=== PATIENT | female | born 1950 | race Caucasian/White ===

== ENCOUNTER 2018-08-03 11:54 | Emergency (ER) | payer OTHER, SELFPAY ==
--- NOTE | 2018-08-03 12:42 | RAD ---
EXAM: Two views chest PROVIDED CLINICAL HISTORY: Weakness and cough COMPARISON: None FINDINGS: Cardiac and mediastinal silhouette appears within normal limits. Lungs appear free of significant opa city. No pleural fluid or pneumothorax apparent. Prominent left convexity scoliosis of the lower thoracic and visualized upper lumbar spine. IMPRESSION: No evidence for an acute cardiopulmonary process.
== END 2018-08-03 13:50 | disposition home or self-care (01) ==
LOC: ERS 11:54
DX: J20.9 Acute bronchitis, unspecified (principal); J30.9 Allergic rhinitis, unspecified; F17.210 Nicotine dependence, cigarettes, uncomplicated
CPT/HCPCS: 71046; 94640; J7620

== ENCOUNTER 2018-10-23 09:24 | Outpatient (CLI) | payer MEDICARE, MEDICAID ==
--- NOTE | 2018-10-23 17:12 | EKG ---
Test Reason : Blood Pressure : / mmHG Vent. Rate : 085 BPM Atrial Rate : 085 BPM P-R Int : 150 ms QRS Dur : 070 ms QT Int : 342 ms P-R-T Axes : 000 055 054 degrees QTc Int : 406 ms Sinus rhythm with Premature atrial complexes Atrial abnormality Anterior infarct , age undetermined Abnormal ECG No previous ECGs available Confirmed by DR. Dorothy HURLEY ([id number]) on 10/23/2018 5:12:23 PM Referred By: HUGH Confirmed By:DR. Dorothy HURLEY
== END 2018-10-23 09:25 | disposition home or self-care (01) ==
LOC: LABBT 09:24
PROVIDERS: ATTEND Thoracic Surgery (Cardiothoracic Vascular Surgery)
DX: Z01.818 Encounter for other preprocedural examination (principal); I71.4 Abdominal aortic aneurysm, without rupture
CPT/HCPCS: 93005; 93010

== ENCOUNTER 2018-10-23 10:00 | Inpatient (IN) | payer MEDICARE, MEDICAID ==
[2018-10-23 09:52] VITALS: BMI 27.9
[2018-10-23 10:43] LABS: Hemoglobin 18.5 g/dL (12.0-16.0); Mean Corpuscular HGB CONC 32.7 g/dL (32.0-36.0); Mean Corpuscular Hemoglobin 31.4 pg (27.0-31.0); Mean Platelet Volume 7.3 fL (7.4-10.4); Platelet Count 344 thou/uL (130-400); RBC Distribution Width 12.3 % (11.5-14.5); White Blood Cell (WBC) Count 19.9 thou/uL (4.8-10.8)
[2018-10-23 10:58] LABS: Anion Gap 13 mmol/L (10-20); BUN (Urea Nitrogen) 15 mg/dL (9.8-20.1); Calc. Creatinine Clearance 0 mL/min (70-130); Calcium 9.9 mg/dL (7.8-10.44); Carbon Dioxide 31 mmol/L (23-31); Chloride 98 mmol/L (98-107); Estimated GFR-MDRD 71; Glucose 156 mg/dL (80-115); Potassium 4.7 mmol/L (3.5-5.1); Sodium 137 mmol/L (136-145)
[2018-10-24] MEDS ORDERED: Clindamycin/D5W 900 mg/50 ml Premix Bag ONE (06:27)
[2018-10-24] MEDS ORDERED: Levofloxacin 500 mg/D5W 100 ml Premix Bag ONE (06:27)
[2018-10-24] MEDS ORDERED: Heparin 10,000 UNITS/1 ML VIAL ONE (06:28)
[2018-10-24] MEDS ORDERED: Protamine Sulfate 50 MG/5 ML VIAL ONE (06:28)
[2018-10-24] MEDS ORDERED: Fentanyl 250 MCG/5 ML VIAL ONE (06:34)
[2018-10-24] MEDS ORDERED: Phenylephrine HCL 10 MG/ML VIAL ONE (06:41)
[2018-10-24] MEDS ORDERED: Scopolamine 1.5 mg/72 hour Patch ONE (06:54)
[2018-10-24] MEDS ORDERED: Labetalol HCl 100 MG/20 ML VIAL ONE (09:19)
[2018-10-24] MEDS ORDERED: Promethazine HCl 25 MG/ML VIAL IM PRN ×2 (09:24→11:21)
[2018-10-24] MEDS ORDERED: Promethazine HCl 25 MG/ML VIAL SLOW IVP PRN (09:24)
[2018-10-24] MEDS ORDERED: Ondansetron HCl/PF 4 MG/2 ML Vial IVP PRN (09:24)
[2018-10-24] MEDS ORDERED: Labetalol HCl 100 MG/20 ML VIAL SLOW IVP SCH (09:30)
[2018-10-24] MEDS ORDERED: Phenylephrine 10 MG/NS 250 ML 250 ML IVPB PRN (11:21)
[2018-10-24] MEDS ORDERED: traMADol HCl 50 MG TAB PO PRN (11:21)
[2018-10-24] MEDS ORDERED: Fentanyl 100 MCG/2 ML VIAL SLOW IVP PRN (11:21)
[2018-10-24] MEDS ORDERED: Acetaminophen 325 MG TAB PO PRN (11:21)
[2018-10-24] MEDS ORDERED: predniSONE 20 MG TAB PO SCH (11:21)
[2018-10-24] MEDS ORDERED: hydrALAZINE 20 MG/ML VIAL SLOW IVP PRN (11:21)
[2018-10-24] MEDS ORDERED: PROVENTIL INHALER 6.7 G (200 INHALATIONS) INH PRN (11:21)
[2018-10-24] MEDS ORDERED: Ondansetron PF 4 MG/2 ML Vial IVP PRN (11:21)
[2018-10-24] MEDS ORDERED: HYDROcodone/Acetaminophen 5/325 mg Tablet PO PRN ×2 (11:21)
[2018-10-24] MEDS ORDERED: Alendronate Sodium 70 mg Tablet PO SCH (11:21)
[2018-10-24] MEDS ORDERED: Ipratropium Oral Inhaler (200 INHALATIONS) INH PRN (12:39)
[2018-10-24] MEDS: Clindamycin/D5W 900 MG in Premix Bag 1 BAG IVPB SCH ×2 (12:53→21:04)
[2018-10-24] MEDS: Sodium Chloride 0.9% 1,000 ML IV SCH ×2 (12:53→21:05)
[2018-10-24] MEDS ORDERED: Rocuronium Bromide 10 MG/ML (10ML VIAL) ONE (14:49)
[2018-10-24] MEDS ORDERED: Heparin 10,000 UNITS/ 10 ML VIAL ONE (14:49)
[2018-10-24] MEDS ORDERED: PHENYLEPHRINE-NS 100 MCG/ML 10 ML SYRINGE ONE (14:49)
[2018-10-24] MEDS ORDERED: Ondansetron PF 4 MG/2 ML Vial ONE (14:49)
[2018-10-24] MEDS ORDERED: Dexamethasone 20 MG/5 ML VIAL ONE (14:49)
[2018-10-24] MEDS ORDERED: Glycopyrrolate 0.2 MG/ML 5 ML SYRINGE ONE (14:49)
[2018-10-24] MEDS ORDERED: Lidocaine 1% PF 5 ML VIAL ONE (14:49)
[2018-10-24] MEDS ORDERED: PROPOFOL 200 MG/20 ML VIAL ONE (14:49)
--- NOTE | 2018-10-24 15:03 | OP ---
DATE OF PROCEDURE: 10/24/2018 PREOPERATIVE DIAGNOSIS: Abdominal aortic aneurysm. POSTOPERATIVE DIAGNOSIS: Abdominal aortic aneurysm. PROCEDURE PERFORMED: 1. Bilateral ultrasound-guided common femoral artery access. 2. Abdominal aortic aneurysm repair utilizing 2 endovascular system -. a. 32 x 166, main body left. b. 16 x 20 x 93 right iliac extension. 3. Bilateral femoral artery closure utilizing ProGlide large-bore closure system. ANESTHESIA: General endotracheal, Dr. Jay Cevallos. ESTIMATED BLOOD LOSS: Less than 100. CONTRAST: 92 mL. TOTAL FLUORO TIME: 10 minutes and 17 seconds. DESCRIPTION OF PROCEDURE: After consent was obtained, the patient was brought to the operating room and placed in the supine position on the operating table. Appropriate central line was placed and general anesthesia was induced. Groins were prepped and draped in usual sterile fashion. Utilizing ultrasound guidance, the bilateral common femoral arteries were accessed and crossed. ProGlide closure system was then placed. The patient was given 7500 units of heparin. The pigtail catheter was positioned from the left groin into the abdominal aorta. Aortogram was performed. Graft was measured to be long limbed graft. Renal arteries were localized. The graft was passed over Lunderquist wire from the left groin. The graft was deployed just below the renals and extended down to the bifurcation. Through the right groin, a pigtail catheter and Lunderquist wire were used to access the gate. Pigtail catheter was twirled inside the graft and twirled easily. Hand-injected arteriogram was performed from the right groin to measure appropriate length of right iliac extension. The graft was selected and deployed. Reliant balloons were used to balloon the complete length of the graft. A completion aortogram showed no endoleak. Graft was nicely positioned just at the renal takeoff. Iliacs were hemostatic with no endoleak and just above the iliac bifurcation. The sheaths were then removed and ProGlide was tightened with good hemostasis. A 50 mg of protamine was given. The patient was awakened, extubated, and transferred to the recovery room in stable condition. Needle, sponge, and instrument counts were all reported as correct at the end of the procedure. Job ID: [id number]
[2018-10-24] MEDS ORDERED: Cefdinir 300 MG CAP PO SCH (21:00)
[2018-10-24] MEDS ORDERED: Lisinopril 5 MG TAB PO SCH (21:00)
[2018-10-24] MEDS ORDERED: Rosuvastatin 20 MG TAB PO SCH (21:00)
[2018-10-24 21:05] VITALS: BP 140/84
[2018-10-25 05:21] LABS: Hemoglobin 16.7 g/dL (12.0-16.0); Mean Corpuscular Hemoglobin 32.1 pg (27.0-31.0); Mean Corpuscular Volume 97.2 fL (78.0-98.0); Platelet Count 227 thou/uL (130-400); RBC Distribution Width 12.1 % (11.5-14.5); Red Blood Cell (RBC) Count 5.21 mill/uL (4.20-5.40); White Blood Cell (WBC) Count 21.3 thou/uL (4.8-10.8)
[2018-10-25 05:40] LABS: Anion Gap 9 mmol/L (10-20); BUN (Urea Nitrogen) 18 mg/dL (9.8-20.1); Calc. Creatinine Clearance 72 mL/min (70-130); Calcium 8.4 mg/dL (7.8-10.44); Carbon Dioxide 31 mmol/L (23-31); Chloride 100 mmol/L (98-107); Estimated GFR-MDRD 72; Glucose 131 mg/dL (80-115); Potassium 4.4 mmol/L (3.5-5.1); Sodium 136 mmol/L (136-145)
--- NOTE | 2018-10-25 05:56 | DIS ---
DATE OF ADMISSION: 10/24/2018 DATE OF DISCHARGE: 10/25/2018 DIAGNOSIS: Abdominal aortic aneurysm. PROCEDURE: Endovascular repair of abdominal aortic aneurysm. DESCRIPTION OF HOSPITAL STAY: Ms. Dickerson underwent endovascular repair, has done well postoperatively. She had percutaneous access with ProGlide large vessel closure. Insertion sites are flat with palpable pulses. She is being discharged home in good condition. Follow up with me in 2 weeks. Job ID: [id number]
[2018-10-25] MEDS: Clindamycin/D5W 900 MG in Premix Bag 1 BAG IVPB SCH (06:21)
[2018-10-25 07:49] LABS: Band 5 % (5-11); Eosinophils 1 % (0-10); Lymphocytes 23 % (21-51); MDiff Complete? YES; Monocytes 3 % (0-10); Neutrophil 68 % (42-75)
[2018-10-25] MEDS ORDERED: Calcium Carbonate 600 MG TAB PO SCH (09:00)
[2018-10-25] MEDS ORDERED: Multivit, Therapeutic 1 TAB PO SCH (09:00)
[2018-10-25] MEDS ORDERED: Aspirin 81 mg Enteric Coated Tablet PO SCH (09:00)
[2018-10-25] MEDS ORDERED: Ubidecarenone 50 MG CAP PO SCH (09:00)
[2018-10-25] MEDS ORDERED: Prevnar 13-Val Conj/PF 0.5 ML SYRINGE IM ONE (09:00)
[2018-10-25] MEDS ORDERED: Mometasone/Formoterol 120 PUFF INHALER INH SCH (09:00)
[2018-10-25 13:44] VITALS: TEMP 98.5
== END 2018-10-25 10:17 | disposition home or self-care (01) | DRG 269 ==
LOC: SURG A 10-24 05:33 → CCU 10-24 10:32
PROVIDERS: ADMIT Thoracic Surgery (Cardiothoracic Vascular Surgery); ATTEND Thoracic Surgery (Cardiothoracic Vascular Surgery)
PROC: 04V03DZ Restriction of Abdominal Aorta with Intraluminal Device, Percutaneous Approach (ICD-10-PCS; principal; 2018-10-24)
DX: I71.4 Abdominal aortic aneurysm, without rupture (principal); E11.9 Type 2 diabetes mellitus without complications; I10 Essential (primary) hypertension; E78.5 Hyperlipidemia, unspecified; J43.9 Emphysema, unspecified; F17.210 Nicotine dependence, cigarettes, uncomplicated; Z90.710 Acquired absence of both cervix and uterus; Z79.82 Long term (current) use of aspirin; Z79.84 Long term (current) use of oral hypoglycemic drugs
CPT/HCPCS: 36415; 36416; 76000; 80048; 85025; 85027; 86850; 86900; 86901; 93005; 93010; 94664; C1726; C1760; C1762; C1769; C1894; J1642; J1644; J1956; J2370; J2720; J3010; J3490

== ENCOUNTER 2019-02-23 06:53 | Outpatient (CLI) | payer MEDICARE, MEDICAID ==
--- NOTE | 2019-02-23 10:24 | CT ---
CTA ABDOMEN AND PELVIS: INDICATIONS: Hypertension TECHNIQUE: Multiple CTA images were obtained of the abdomen and pelvis utilizing IV contrast and 3D reformatted imaging. Axial, coronal and sagittal reformatted images were constructed from the raw data. FINDINGS: ABDOMEN: Lung bases: There is mild lingular atelectasis. Liver: Scattered calcified granuloma Gallbladder: Normal appearing. Pancreas: Normal. Adrenal glands: Normal. Spleen: Calcified granuloma Kidneys and ureters: Stable bilateral renal cysts Lymph nodes:No lymphadenopathy. Free fluid in abdomen:No free fluid is evident. Small and large bowel: Colonic diverticulosis without evidence of active diverticulitis Appendix:Surgically absent Osseous structures: There is prominent thoracolumbar scoliosis. There is scattered degenerative and o steoarthritic change. Soft tissues:Normal. VASCULATURE: Aorta: The distal thoracic aorta demonstrates stable ectasia. The distal thoracic aorta just prior to the diaphragm measures 2.8 cm. The aorta at the level of the hiatus measures 3 cm which is stable appearing. The suprarenal aorta measures 2.5 cm which is stable. The aorta at the level of the renal arteries measures 2.4 cm which is stable. There has been interval placement of an aortobiiliac endograft stent. The excluded aneurysmal dilatation of the infrarenal abdominal aorta measures 4.5 x 4.7 cm where previously measured 5 x 4.6 cm. There is no evidence to suggest endoleak. Celiac:Normal in caliber without evidence of stenosis or occlusion. SMA:Normal in caliber without evidence of stenosis or occlusion. Renal arteries:Normal in caliber without evidence of stenosis or occlusion. The left renal artery is duplicated. 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 No hemodynamically significant stenosis is seen involving the external iliac or common femoral arteries. IMPRESSION: 1. Interval placement of an aorto biiliac endograft stent and stent within the left common iliac yamila ry. No evidence to suggest presence of endoleak. The excluded abdominal aortic aneurysm is slightly smaller. The left common iliac artery is relatively stable in size. 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
[2019-02-23] MEDS ORDERED: Iopamidol 370 76% 100 ML VIAL ONE (14:54)
== END 2019-02-23 06:54 | disposition home or self-care (01) ==
LOC: CT 06:53
PROVIDERS: ATTEND Thoracic Surgery (Cardiothoracic Vascular Surgery)
DX: I71.4 Abdominal aortic aneurysm, without rupture (principal); I77.810 Thoracic aortic ectasia; Z95.828 Presence of other vascular implants and grafts
CPT/HCPCS: 74174; 82565; Q9967